=== PATIENT | female | born 1965 | race Caucasian/White ===

== ENCOUNTER 2025-05-21 08:15 | Outpatient (RCR) | payer BC, SELFPAY ==
--- NOTE | 2025-05-04 14:02 | PT.OPEX ---
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 SHE HAS HAD AN UPTICK IN THE PAIN AND DYSFUNCTION IN THE LAST COUPLE OF MONTHS COMPLICATING BY THE PASSING OF HER FATHER AND THE CHALLENGE OF MITIGATING HER MOTHER'S NEEDS SHE LIVES [address]HOU[place] AWAY. SHE GENERALLY FEELS THE BEST IN THE MORNING, BUT AFTER A LONG SHIFT AT WORK, HER KNEE IS SPENT. SHE HAS WORN KNEE SLEEVES WITH AND W/O AN OPEN PATELLA BUT, SHE DOESN'T PARTICULARLY CARE TO WEAR ONE. SHE HAS HAD A CORTISONE INJECTION WHICH HELPED SOMEWHAT BUT NOT TO THE POINT OF APPRECIABLE CHANGE IN HER DAYS ACTIVITY NEEDS. SHE IS HAVING A VISCOSUPPLEMENTS INJECTION ON May BUT NEEDS AT LEAST 4 VISITS OF PHYSICAL THERAPY FOR INSURANCE TO COVER THE INTERVENTION. Pain Comments -03/24 Date of Last 03/28/25 Physician Visit Date of Next 05/28/25 Physician Visit Current Work Status [employer] Occupation [employer] Precautions Treatment PMHX: PREVIOUS ARTHROSCOPES BOTH R (2) AND L (1), Precautions/ Contraindications Therapy Limitations/ Not Limited Systems Review Objective Other/Pertinent SUPINE RIGHT AROM 0-5-110; MODERATED SUPRA>PERIPATELLAR Objective EFFUSION WITH MEDIAL JOINT LINE TENDERNESS; Functional Test OKC: 28/48 INDICATING MODERATE TO SEVERE OA Performed & Score [id number] Assessment Assessment/ PATIENT IS A 59Y[address] MAURER TO EVAL AND Impression TREAT RIGHT>LEFT KNEE MOD TO SEVERE OA, CHRONIC KNEE PAIN. PATIENT DEMONSTRATES SIGNS AND SYMPTOMS CONSISTENT WITH RIGHT>LEFT KNEE MOD TO SEVERE OA, CHRONIC KNEE PAIN CONTRIBUTING TO THEIR FUNCTIONAL IMPAIRMENTS OF PAIN WITH AMB ON STAIRS, KNEELING, STOOPING, SQUATTING AND PROLONGED STDG . PATIENT DESCRIBES THE FOLLOWING TRIGGERS WEIGHTED FLEX, PROLONGED STDG/SITTING, TRANSITIONAL MVMTS WHICH ARE ALLEVIATED BY REST, PO OTC, RECENT CORTISONE INJECTION AND AVOIDING TRIGGERS. PATIENT HAS NOTABLE OBJECTIVE FINDING INCLUDING SUPINE AROM 0-5-110, PAIN WITH SQUATS , SLS 10R/18 L, + PATELLA GRIND, 28 [place] QUESTIONNAIRE WHICH ALL ARE CONTRIBUTING TO THE CLINICAL IMPRESSION. 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 INTERVENTION IS NECESSARY BY WAY OF THERAPEUTIC EXERCISE, MANUAL THERAPY, NEUROMUSCULAR RE-EDUCATION, STABILIZATION/PROPRIOCEPTION, MODALITIES FOR SYMPTOM MGMT, PATIENT EDUCATION, KINESIOTAPING, DRY NEEDLING PLEASE REFER TO APPROPRIATE SECTION WITHIN THIS EVALUATION FOR COMPLETE LIST OF GOALS AND PLAN OF CARE. DISCHARGE PLAN AND CRITERIA IS FOR PATIENT TO ACHIEVE THE GOALS LISTED BELOW OR UNTIL MAX POTENTIAL MET. PATIENT VERBALIZED UNDERSTANDING AND AGREEABLE TO POC, FREQ, AND GOALS ESTABLISHED. 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 Plan of Care Rehabilitation Good Potential Physical Therapy 1. DECREASE BILATERAL KNEE PAIN TO </3/10 WITH DAILY Goals ACTIVITIES AND WITH THE PROGRESSION OF PHYSICAL THERAPY PROGRAM OVER THE NEXT 3-4 WEEKS 2. IMPROVE BILATERAL KNEE ROM TO WFL OVER THE NEXT 4-6 WEEKS FOR IMPROVED GAIT MECHANICS, RETURN TO TRANSFERS W/O ASSISTANCE AND WITH EASE, AND RETURN TO ASCENDING/ DESCENDING STAIRS WITH RECIPROCAL GAIT 3. IMPROVE CORE/LE COMPLEX STRENGTH OVER THE NEXT 6-8 WEEKS FOR RETURN TO TRANSFERS WITH EASE, NORMAL GAIT WITHOUT AD, AND STANDING/WALKING >15MIN WITHOUT A FLARE UP OF PAIN 4. PATIENT WILL BE INDEPENDENT WITH HER INDIVIDUALIZED AND COMPREHENSIVE HEP WITHIN 8-12 WEEKS FOR PROGRESSION TOWARD ABOVE GOALS, ONGOING IMPROVEMENT OF PAIN/SYMPTOMS, ROM, STRENGTH, AND MOBILITY TO RETURN TO DAILY ACTIVITIES AND FAMILY CENTERED ACTIVITIES W/O FLARE UP OF PAIN/SYMPTOMS Coordination/ Referral Source Communication With Treatment Plan/ Dry Needling,Electrical Stimulation,Gait Training,Ice/ Direct Interventions Cold/Vasopneumatic,Joint Mobilization,Manual Therapy, Neuromuscular Re-ed,Self-Care/Home Management, Therapeutic Activities,Therapeutic Exercises,Ultrasound Frequency/Duration 1X/WK Patient Will Be Completion of LTG(s),Independent w/HEP Discharged From Therapy Evaluation Billing Untimed Code 20 Treatment Minutes PT Eval No Charge No Complexity Low Certification Information Provider Signature Communication Only-No Signature Required Required
== END 2025-07-23 11:26 | disposition home or self-care (01) ==
PROVIDERS: PCP Student in an Organized Health Care Education/Training Program; Visit Provider Family Medicine
DX: M25.561 Pain in right knee (principal); G89.29 Other chronic pain; M17.0 Bilateral primary osteoarthritis of knee; M25.562 Pain in left knee; Z51.89 Encounter for other specified aftercare
CPT/HCPCS: 97110; 97112; 97161